=== PATIENT | female | born 1970 | race Caucasian/White ===

== ENCOUNTER → 2016-09-05 | Outpatient (CLI) | payer BC ==
[2016-09-05 16:01] LABS: Hemoglobin A1C 8.7 % (4.2-6.1)
== END | disposition home or self-care (01) ==
LOC: LABWHC1 13:33
PROVIDERS: ATTEND Internal Medicine Endocrinology, Diabetes & Metabolism
DX: E10.65 Type 1 diabetes mellitus with hyperglycemia (principal); E03.8 Other specified hypothyroidism
CPT/HCPCS: 36415; 80061; 83036; 84439; 84443

== ENCOUNTER → 2017-02-26 | Outpatient (CLI) | payer BC ==
[2017-02-26 20:06] LABS: Hemoglobin A1C 8.5 % (4.2-6.1)
== END | disposition home or self-care (01) ==
LOC: LABWHC1 16:31
PROVIDERS: ATTEND Internal Medicine Endocrinology, Diabetes & Metabolism
DX: E03.8 Other specified hypothyroidism (principal); E10.65 Type 1 diabetes mellitus with hyperglycemia
CPT/HCPCS: 36415; 80061; 83036; 84439; 84443

== ENCOUNTER 2017-08-09 23:07 | Inpatient (IN) | payer BC ==
[2017-08-09] MEDS ORDERED: SODIUM CHLORIDE 0.9% 1,000 ML IV STA ×2 (23:12)
[2017-08-09] MEDS ORDERED: SODIUM CHLORIDE 0.9% 500 ML IV STA (23:12)
[2017-08-09 23:16] LABS: Glucose,Whole Blood 521 mg/dL (75-99)
--- NOTE | 2017-08-09 23:23 | ED ---
General Adult HPI - General Stated complaint: Altered Mental Status Time Seen by Provider: 08/09/17 23:10 Source: RN notes reviewed, old records reviewed - History of Present Illness Initial comments: This is a 47-year-old female to the ER for evaluation and altered mental status , combativeness, not taking medications, elevated blood sugar and inappropriate actions at home today. EMS was called the patient's , patient himself is unable to history at this time refuses to give history at this time. - Related Data Home Medications Medication Instructions Recorded Confirmed DULoxetine HCL [Cymbalta] 60 mg PO DAILY 06/25/14 08/09/17 ALPRAZolam [Xanax] 0.75 - 1 mg PO DAILY PRN 02/09/16 08/09/17 Atorvastatin [Lipitor] 10 mg PO DAILY 02/09/16 08/09/17 Escitalopram [Lexapro] 20 mg PO DAILY 08/09/17 08/09/17 Gabapentin [Neurontin] 1,600 mg PO DIRECTED 08/09/17 08/09/17 Naproxen Sodium [Aleve] 220 mg PO DAILY 08/09/17 08/09/17 PARoxetine HCL [Paxil] 40 mg PO DAILY 08/09/17 08/09/17 Previous Rx's Medication Instructions Recorded Insulin Aspart [NovoLOG 6 unit SQ AC-TID #1 vial 08/11/17 (formulary)] Insulin Glargine [Lantus] 20 unit SQ HS #1 vial 08/11/17 Allergies Allergy/AdvReac Type Severity Reaction Status Date / Time No Known Allergies Allergy Verified 06/21/17 16:52 Review of Systems ROS Statement: Those systems with pertinent positive or pertinent negative responses have been documented in the HPI. ROS Other: All systems not noted in ROS Statement are negative. Past Medical History Past Medical History: Diabetes Mellitus, Hyperlipidemia, Thyroid Disorder Additional Past Medical History / Comment(s): INSULIN PUMP-TYPE 1, hypothyroid, vitiligo (auto immune disease that causes loss of skin color in blotches), past fx L foot and pelvic fx with childbirth. History of Any Multi-Drug Resistant Organisms: None Reported Past Surgical History: Breast Surgery, Hysterectomy Additional Past Surgical History / Comment(s): breast reduction, TUMMY TUCK, MANIPULATION RIGHT/LEFT SHOULDERS, hysterectomy with L oophorectomy, R oophorectomy. Past Anesthesia/Blood Transfusion Reactions: Motion Sickness Past Psychological History: Anxiety, Depression Smoking Status: Current every day smoker Past Alcohol Use History: None Reported Past Drug Use History: None Reported - Past Family History Father Family Medical History: No Reported History Mother Family Medical History: No Reported History General Exam Limitations: altered mental status General appearance: alert, appears intoxicated, anxious Head exam: Present: atraumatic, normocephalic, normal inspection Eye exam: Present: normal appearance, PERRL, EOMI. Absent: scleral icterus, conjunctival injection, periorbital swelling ENT exam: Present: normal exam, mucous membranes moist Neck exam: Present: normal inspection. Absent: tenderness, meningismus, lymphadenopathy Respiratory exam: Present: normal lung sounds bilaterally. Absent: respiratory distress, wheezes, rales, rhonchi, stridor Cardiovascular Exam: Present: regular rate, normal rhythm, normal heart sounds. Absent: systolic murmur, diastolic murmur, rubs, gallop, clicks GI/Abdominal exam: Present: soft, normal bowel sounds. Absent: distended, tenderness, guarding, rebound, rigid Extremities exam: Present: normal inspection, full ROM, normal capillary refill. Absent: tenderness, pedal edema, joint swelling, calf tenderness Back exam: Present: normal inspection Neurological exam: Present: alert, oriented X3, CN II-XII intact Psychiatric exam: Present: normal affect, normal mood Skin exam: Present: warm, dry, intact, normal color. Absent: rash Course Vital Signs 08/09/17 08/10/17 08/10/17 23:44 01:30 02:30 Temperature 97 F L Pulse Rate 110 H 110 H 128 H Pulse Rate [ Pulse Oximetery ] Respiratory 20 22 20 Rate Blood Pressure 125/65 128/63 122/65 Blood Pressure [Right Arm] O2 Sat by Pulse 100 96 96 Oximetry 08/10/17 08/10/17 02:55 03:20 Temperature 98.4 F Pulse Rate 109 H Pulse Rate [ 126 H Pulse Oximetery ] Respiratory 22 16 Rate Blood Pressure 113/67 Blood Pressure 113/66 [Right Arm] O2 Sat by Pulse 96 96 Oximetry - Reevaluation(s) Reevaluation #1: 08/09/17 23:22 Patient is very combative, given chemical sedation EKG Findings - EKG Comments: EKG Findings:: EKG shows sinus tachycardia rate 106, CO 132, QRS 72, QTc 480 Medical Decision Making - Medical Decision Making 47 female the ER with combativeness, decreased level of responsiveness, positive DKA. No other issues noted. Patient did take out her insulin pump earlier today for unknown reason. Patient will be admitted for correction of electrolytes IV hydration - Lab Data Result diagrams: 08/11/17 11:24 08/10/17 15:35 Lab Results 08/09/17 08/09/17 08/09/17 Range/Units 23:14 23:20 23:20 WBC (3.8-10.6) k/uL RBC (3.80-5.40) m/uL Hgb (11.4-16.0) gm/dL Hct (34.0-46.0) % MCV (80.0-100.0) fL MCH (25.0-35.0) pg MCHC (31.0-37.0) g/dL RDW (11.5-15.5) % Plt Count (150-450) k/uL Neutrophils % % Lymphocytes % % Monocytes % % Eosinophils % % Basophils % % Neutrophils # (1.3-7.7) k/uL Lymphocytes # (1.0-4.8) k/uL Monocytes # (0-1.0) k/uL Eosinophils # (0-0.7) k/uL Basophils # (0-0.2) k/uL PT (9.0-12.0) sec INR (<1.2) APTT (22.0-30.0) sec Sodium 138 (137-145) mmol/L Potassium 4.9 (3.5-5.1) mmol/L Chloride 101 (98-107) mmol/L Carbon Dioxide 16 L (22-30) mmol/L Anion Gap 21 mmol/L BUN 24 H (7-17) mg/dL Creatinine 0.60 (0.52-1.04) mg/dL Est GFR (CKD-EPI)AfAm >90 (>60 ml/min/1.73 sqM) Est GFR (CKD-EPI)NonAf >90 (>60 ml/min/1.73 sqM) Glucose 578 H* (74-99) mg/dL POC Glucose (mg/dL) 521 H (75-99) mg/dL POC Glu Visitor Services Information Assistant ID Cecilia Soto Calcium 10.0 (8.4-10.2) mg/dL Phosphorus 4.9 H (2.5-4.5) mg/dL Magnesium 1.8 (1.6-2.3) mg/dL Total Bilirubin 0.7 (0.2-1.3) mg/dL AST 26 (14-36) U/L ALT 22 (9-52) U/L Alkaline Phosphatase 115 (38-126) U/L Total Creatine Kinase 86 (30-135) U/L CK-MB (CK-2) 2.2 (0.0-2.4) ng/mL CK-MB (CK-2) Rel Index 2.6 Troponin I <0.012 (0.000-0.034) ng/mL Total Protein 6.7 (6.3-8.2) g/dL Albumin 4.1 (3.5-5.0) g/dL Urine Color Urine Appearance (Clear) Urine pH (5.0-8.0) Ur Specific Eastman (1.001-1.035) Urine Protein (Negative) Urine Glucose (UA) (Negative) Urine Ketones (Negative) Urine Blood (Negative) Urine Nitrite (Negative) Urine Bilirubin (Negative) Urine Urobilinogen (<2.0) mg/dL Ur Leukocyte Esterase (Negative) Salicylates <1.0 mg/dL Urine Opiates Screen (NotDetected) Ur Oxycodone Screen (NotDetected) Urine Methadone Screen (NotDetected) Ur Propoxyphene Screen (NotDetected) Acetaminophen <10.0 ug/mL Ur Barbiturates Screen (NotDetected) U Tricyclic Antidepress (NotDetected) Ur Phencyclidine Scrn (NotDetected) Ur Amphetamines Screen (NotDetected) U Methamphetamines Scrn (NotDetected) U Benzodiazepines Scrn (NotDetected) Urine Cocaine Screen (NotDetected) U Marijuana (THC) Screen (NotDetected) Serum Alcohol <10 mg/dL Acetone, Qual Positive (Negative) 08/09/17 08/09/17 08/09/17 Range/Units 23:20 23:20 23:20 WBC 24.6 H (3.8-10.6) k/uL RBC 4.67 (3.80-5.40) m/uL Hgb 13.6 (11.4-16.0) gm/dL Hct 43.2 (34.0-46.0) % MCV 92.5 (80.0-100.0) fL MCH 29.2 (25.0-35.0) pg MCHC 31.6 (31.0-37.0) g/dL RDW 14.2 (11.5-15.5) % Plt Count 253 (150-450) k/uL Neutrophils % 88 % Lymphocytes % 7 % Monocytes % 5 % Eosinophils % 0 % Basophils % 0 % Neutrophils # 21.6 H (1.3-7.7) k/uL Lymphocytes # 1.7 (1.0-4.8) k/uL Monocytes # 1.2 H (0-1.0) k/uL Eosinophils # 0.1 (0-0.7) k/uL Basophils # 0.1 (0-0.2) k/uL PT 12.1 H (9.0-12.0) sec INR 1.3 H (<1.2) APTT 20.6 L (22.0-30.0) sec Sodium (137-145) mmol/L Potassium (3.5-5.1) mmol/L Chloride (98-107) mmol/L Carbon Dioxide (22-30) mmol/L Anion Gap mmol/L BUN (7-17) mg/dL Creatinine (0.52-1.04) mg/dL Est GFR (CKD-EPI)AfAm (>60 ml/min/1.73 sqM) Est GFR (CKD-EPI)NonAf (>60 ml/min/1.73 sqM) Glucose (74-99) mg/dL POC Glucose (mg/dL) (75-99) mg/dL POC Glu Visitor Services Information Assistant ID Calcium (8.4-10.2) mg/dL Phosphorus (2.5-4.5) mg/dL Magnesium (1.6-2.3) mg/dL Total Bilirubin (0.2-1.3) mg/dL AST (14-36) U/L ALT (9-52) U/L Alkaline Phosphatase (38-126) U/L Total Creatine Kinase (30-135) U/L CK-MB (CK-2) (0.0-2.4) ng/mL CK-MB (CK-2) Rel Index Troponin I (0.000-0.034) ng/mL Total Protein (6.3-8.2) g/dL Albumin (3.5-5.0) g/dL Urine Color Light Yellow Urine Appearance Clear (Clear) Urine pH 5.0 (5.0-8.0) Ur Specific Eastman 1.022 (1.001-1.035) Urine Protein Negative (Negative) Urine Glucose (UA) 4+ H (Negative) Urine Ketones 3+ H (Negative) Urine Blood Negative (Negative) Urine Nitrite Negative (Negative) Urine Bilirubin Negative (Negative) Urine Urobilinogen <2.0 (<2.0) mg/dL Ur Leukocyte Esterase Negative (Negative) Salicylates mg/dL Urine Opiates Screen Not Detected (NotDetected) Ur Oxycodone Screen Not Detected (NotDetected) Urine Methadone Screen Detected H (NotDetected) Ur Propoxyphene Screen Not Detected (NotDetected) Acetaminophen ug/mL Ur Barbiturates Screen Not Detected (NotDetected) U Tricyclic Antidepress Not Detected (NotDetected) Ur Phencyclidine Scrn Not Detected (NotDetected) Ur Amphetamines Screen Not Detected (NotDetected) U Methamphetamines Scrn Not Detected (NotDetected) U Benzodiazepines Scrn Not Detected (NotDetected) Urine Cocaine Screen Not Detected (NotDetected) U Marijuana (THC) Screen Detected H (NotDetected) Serum Alcohol mg/dL Acetone, Qual (Negative) - Radiology Data Radiology results: report reviewed (CT brain chest x-ray are negative), image reviewed Disposition Clinical Impression: Altered mental status, Delirium due to general medical condition, DKA ( diabetic ketoacidoses) Disposition: ADMITTED IP TO THIS [facility] Condition: Fair
[2017-08-09 23:41] LABS: Basophils # (A) 0.1 k/uL (0-0.2); Basophils % (A) 0 %; Eosinophils # (A) 0.1 k/uL (0-0.7); Eosinophils % (A) 0 %; HCT 43.2 % (34.0-46.0); HGB 13.6 gm/dL (11.4-16.0); Lymphocytes # (A) 1.7 k/uL (1.0-4.8); Lymphocytes % (A) 7 %; MCH 29.2 pg (25.0-35.0); MCHC 31.6 g/dL (31.0-37.0); MCV 92.5 fL (80.0-100.0); Mean Platelet Volume 9.1; Monocytes # (A) 1.2 k/uL (0-1.0); Monocytes % (A) 5 %; Neutrophils # (A) 21.6 k/uL (1.3-7.7); Neutrophils % (A) 88 %; Platelet Count 253 k/uL (150-450); RBC 4.67 m/uL (3.80-5.40); RDW 14.2 % (11.5-15.5); WBC 24.6 k/uL (3.8-10.6)
[2017-08-09 23:44] LABS: Appearance,Urine Clear (Clear); Bilirubin,Urine Negative (Negative); Blood,Urine Negative (Negative); Color,Urine Light Yellow; Glucose,Urine (UA) 4+ (Negative); Leukocyte Esterase,Urine Negative (Negative); Nitrite,Urine Negative (Negative); Protein,Urine Negative (Negative); Specific Gravity,Urine 1.022 (1.001-1.035); Urobilinogen,Urine <2.0 mg/dL (<2.0)
[2017-08-09 23:52] LABS: ALT 22 U/L (9-52); AST 26 U/L (14-36); Acetaminophen <10.0 ug/mL; Albumin 4.1 g/dL (3.5-5.0); Alcohol <10 mg/dL; Alkaline Phosphatase 115 U/L (38-126); Amphetamine Screen,Urine Not Detected (NotDetected); Anion Gap 21 mmol/L; Barbiturate Screen,Urine Not Detected (NotDetected); Benzodiazepines Screen,Urine Not Detected (NotDetected); Blood Urea Nitrogen 24 mg/dL (7-17); Carbon Dioxide 16 mmol/L (22-30); Chloride 101 mmol/L (98-107); Cocaine Screen,Urine Not Detected (NotDetected); Magnesium 1.8 mg/dL (1.6-2.3); Methadone Screen, Urine Detected (NotDetected); Opiate Screen,Urine Not Detected (NotDetected); Oxycodone Screen, Urine Not Detected (NotDetected); Phencyclidine Screen,Urine Not Detected (NotDetected); Phosphorus 4.9 mg/dL (2.5-4.5); Potassium 4.9 mmol/L (3.5-5.1); Salicylate <1.0 mg/dL; Sodium 138 mmol/L (137-145); Total Bilirubin 0.7 mg/dL (0.2-1.3); Total Protein 6.7 g/dL (6.3-8.2); Tricyclic Antidepressant,Urine Not Detected (NotDetected); Urn Cannabinoid Scrn Detected (NotDetected)
[2017-08-09 23:53] LABS: INR 1.3 (<1.2); Prothrombin Time 12.1 sec (9.0-12.0)
[2017-08-10 00:01] LABS: Glucose 578 mg/dL (74-99)
[2017-08-10 00:04] LABS: Creatine Kinase 86 U/L (30-135)
[2017-08-10 00:13] LABS: Partial Thromboplastin Time 20.6 sec (22.0-30.0)
[2017-08-10] MEDS ORDERED: INSULIN REGULAR 100 UNIT/ML VIAL SQ ONE (00:13)
[2017-08-10] MEDS ORDERED: INSULIN REGULAR 100 UNIT/ML VIAL IV ONE (00:13)
[2017-08-10] MEDS ORDERED: SODIUM CHLORIDE 0.9% 500 ML IV STA (00:13)
[2017-08-10 00:17] LABS: Creatine Kinase MB 2.2 ng/mL (0.0-2.4); Troponin I <0.012 ng/mL (0.000-0.034)
[2017-08-10] MEDS ORDERED: LORazepam 2 MG/ML INJ IV STA ×2 (00:21→01:05)
[2017-08-10] MEDS ORDERED: SODIUM CHLORIDE 0.9% 1,000 ML IV ONE (00:29)
[2017-08-10 00:32] LABS: Ketones,Urine 3+ (Negative)
[2017-08-10] MEDS ORDERED: MORPHINE SULFATE 4 MG/ML SYRINGE IV STA (01:05)
[2017-08-10] MEDS ORDERED: MORPHINE SULFATE/PF 10MG/10ML VL IV STA (01:08)
[2017-08-10] MEDS: INSULIN REGULAR 100 UNIT in SODIUM CHLORIDE 0.9% 100 ML IV SCH ×2 (01:50→16:33)
--- NOTE | 2017-08-10 02:38 | XR ---
EXAMINATION TYPE: XR chest 1V portable DATE OF EXAM: 08/10/2017 COMPARISON: 02/10/2016 HISTORY: Altered mental status TECHNIQUE: Single frontal view of the chest is obtained. FINDINGS: Heart and mediastinum are normal. Lungs are clear. Costophrenic angles are clear. There is no heart failure. There is no evidence of pleural effusion. Bony thorax is intact. There are chest l abdiaziz. IMPRESSION: Normal chest. No change.
--- NOTE | 2017-08-10 03:01 | CT ---
EXAMINATION TYPE: CT brain wo con DATE OF EXAM: 08/10/2017 COMPARISON: NONE HISTORY: AMS CT DLP: 1199.40 mGycm. Automated Exposure Control for Dose Reduction was Utilized. TECHNIQUE: CT scan of the head is performed without contrast. FINDINGS: Ventricles and sulci appear normal. There is no mass effect nor midline shift. There is n o sign of intracranial hemorrhage. The calvarium is intact. CONCLUSION: Normal head CT scan.
[2017-08-10 03:04] LABS: Glucose,Whole Blood 442 mg/dL (75-99)
[2017-08-10 03:51] VITALS: BMI 18.8
[2017-08-10 04:05] LABS: Glucose,Whole Blood 382 mg/dL (75-99)
[2017-08-10 04:19] LABS: Carbon Dioxide 13 mmol/L (22-30); Glucose 396 mg/dL (74-99); Phosphorus 2.4 mg/dL (2.5-4.5); Potassium 3.6 mmol/L (3.5-5.1)
[2017-08-10 04:20] LABS: Anion Gap 22 mmol/L; Blood Urea Nitrogen 29 mg/dL (7-17); Chloride 106 mmol/L (98-107); Sodium 141 mmol/L (137-145)
[2017-08-10 04:40] LABS: Glucose,Whole Blood 336 mg/dL (75-99)
[2017-08-10] MEDS: SODIUM CHLORIDE 0.9% 1,000 ML IV SCH ×3 (05:40→17:49)
[2017-08-10 05:46] LABS: Glucose,Whole Blood 265 mg/dL (75-99)
[2017-08-10] MEDS: D5-0.45% NACL WITH KCL 20MEQ/L 1,000 ML IV SCH ×2 (06:35→15:59)
[2017-08-10 07:04] LABS: Glucose,Whole Blood 218 mg/dL (75-99)
[2017-08-10 07:39] LABS: Glucose,Whole Blood 225 mg/dL (75-99)
[2017-08-10 08:22] LABS: Anion Gap 14 mmol/L; Blood Urea Nitrogen 34 mg/dL (7-17); Carbon Dioxide 20 mmol/L (22-30); Chloride 108 mmol/L (98-107); Glucose 234 mg/dL (74-99); Phosphorus 1.3 mg/dL (2.5-4.5); Potassium 3.9 mmol/L (3.5-5.1); Sodium 142 mmol/L (137-145)
[2017-08-10 08:37] LABS: Glucose,Whole Blood 237 mg/dL (75-99)
[2017-08-10 09:40] LABS: Glucose,Whole Blood 224 mg/dL (75-99)
[2017-08-10 10:50] LABS: Glucose,Whole Blood 210 mg/dL (75-99)
[2017-08-10 11:57] LABS: Glucose,Whole Blood 170 mg/dL (75-99)
[2017-08-10 12:37] LABS: Glucose,Whole Blood 154 mg/dL (75-99)
[2017-08-10 13:32] VITALS: RESP 18
[2017-08-10 13:38] LABS: Glucose,Whole Blood 139 mg/dL (75-99)
[2017-08-10 14:38] LABS: Glucose,Whole Blood 160 mg/dL (75-99)
[2017-08-10 15:42] LABS: Glucose,Whole Blood 137 mg/dL (75-99)
[2017-08-10 16:04] LABS: Anion Gap 11 mmol/L; Blood Urea Nitrogen 36 mg/dL (7-17); Calcium 10.5 mg/dL (8.4-10.2); Carbon Dioxide 22 mmol/L (22-30); Chloride 109 mmol/L (98-107); Glucose 129 mg/dL (74-99); Potassium 4.7 mmol/L (3.5-5.1); Sodium 142 mmol/L (137-145)
[2017-08-10 16:33] LABS: Glucose,Whole Blood 105 mg/dL (75-99)
[2017-08-10] MEDS ORDERED: INSULIN DETEMIR 100 UNIT/ML 10 ML VIAL SQ STA (17:29)
--- NOTE | 2017-08-10 17:29 | P.HPIM ---
History of Present Illness 47-year-old present female admitted with altered mental status found to be in DKA patient the urine is positive for methadone and marijuana which were believed to be contributory to her altered mental status CT of the head is negative patient doesn't have any fever localized rigidity or neck rigidity no signs or symptoms of sepsis at this time. Patient was given few milligrams of Ativan because of her agitation because of which is she is completely confused unable to provide any history to me. Patient is definitely in diverticular acidosis unsure whether patient is taking his medications are not unable to get the appropriate history from her either patient is being treated for DKA on DKA protocol with every hourly basic metabolic profile testing once the anion gap resolves patient will be switched to Lantus and pre-meal insulin patient normally uses insulin pump at home. If her altered mental status doesn' t improve patient may think for encephalitis the chance of which are low considering that the patient doesn't have any signs or symptoms of sepsis are physical exam findings consistent with meningitis or encephalitis. Review of Systems Unable to obtain patient says she is okay this only as I can get from the patient Past Medical History Past Medical History: Diabetes Mellitus, Hyperlipidemia, Thyroid Disorder Additional Past Medical History / Comment(s): INSULIN PUMP-TYPE 1, hypothyroid, vitiligo (auto immune disease that causes loss of skin color in blotches), past fx L foot and pelvic fx with childbirth. History of Any Multi-Drug Resistant Organisms: None Reported Past Surgical History: Breast Surgery, Hysterectomy Additional Past Surgical History / Comment(s): breast reduction, TUMMY TUCK, MANIPULATION RIGHT/LEFT SHOULDERS, hysterectomy with L oophorectomy, R oophorectomy. Past Anesthesia/Blood Transfusion Reactions: Motion Sickness Past Psychological History: Anxiety, Depression Additional Psychological History / Comment(s): Pt resides with her spouse Smoking Status: Current every day smoker Past Alcohol Use History: None Reported Additional Past Alcohol Use History / Comment(s): Pt started smoking in 1985. She is a 1ppd smoker. Past Drug Use History: None Reported - Past Family History Father Family Medical History: No Reported History Mother Family Medical History: No Reported History Medications and Allergies Home Medications Medication Instructions Recorded Confirmed Type DULoxetine HCL [Cymbalta] 60 mg PO DAILY 06/25/14 08/09/17 History Insulin Aspart [NovoLOG] See Protocol SQ-PUMP CONTINUOUS 06/25/14 08/09/17 History ALPRAZolam [Xanax] 0.75 - 1 mg PO DAILY PRN 02/09/16 08/09/17 History Atorvastatin [Lipitor] 10 mg PO DAILY 02/09/16 08/09/17 History Escitalopram [Lexapro] 20 mg PO DAILY 08/09/17 08/09/17 History Gabapentin [Neurontin] 1,600 mg PO DIRECTED 08/09/17 08/09/17 History Naproxen Sodium [Aleve] 220 mg PO DAILY 08/09/17 08/09/17 History PARoxetine HCL [Paxil] 40 mg PO DAILY 08/09/17 08/09/17 History Allergies Allergy/AdvReac Type Severity Reaction Status Date / Time No Known Allergies Allergy Verified 06/21/17 16:52 Physical Exam Vitals: Vital Signs Temp Pulse Pulse Resp BP BP Pulse Ox 08/10/17 16:00 98.6 F 108 H 18 83/54 99 08/10/17 12:00 98.4 F 112 H 18 92/65 98 08/10/17 08:00 99.4 F 112 H 16 89/60 99 08/10/17 03:44 98.4 F 126 H 18 113/66 96 08/10/17 03:20 98.4 F 126 H 16 113/66 96 08/10/17 02:55 109 H 22 113/67 96 08/10/17 02:30 128 H 20 122/65 96 08/10/17 01:30 110 H 22 128/63 96 08/09/17 23:44 97 F L 110 H 20 125/65 100 Intake and Output 08/10/17 08/10/17 08/10/17 06:59 14:59 22:59 Intake Total 1837.304 62.003 1.693 Balance 1837.304 62.003 1.693 Intake: Amount of Fluid Infused ( 1800 ml) Intake, IV Titration 37.304 62.003 1.693 Amount Insulin Regular 100 unit 37.304 62.003 1.693 In Sodium Chloride 0.9% 100 ml @ 0.1 UNITS/KG/HR 5.95 mls/hr IV .[id number] [facility] Rx#:[id number] Oral 0 Other: Voiding Method Incontinent # Voids 1 Weight 54.5 kg 54.5 kg PHYSICAL EXAMINATION: GENERAL: The patient is alert and able does his orientation probably oriented 0 -1 unable to provide me any history lying to the side on the bed comfortable without any respiratory distress HEENT: Pupils are round and equally reacting to light. EOMI. No scleral icterus. No conjunctival pallor. Normocephalic, atraumatic. No pharyngeal erythema. No thyromegaly. CARDIOVASCULAR: S1 and S2 present. No murmurs, rubs, or gallops. PULMONARY: Chest is clear to auscultation, no wheezing or crackles. ABDOMEN: Soft, nontender, nondistended, normoactive bowel sounds. No palpable organomegaly. MUSCULOSKELETAL: No joint swelling or deformity. EXTREMITIES: No cyanosis, clubbing, or pedal edema. NEUROLOGICAL: Unable to assess patient doesn't have any nuchal rigidity neck rigidity SKIN: No rashes. Results CBC & Chem 7: 08/09/17 23:20 08/10/17 15:35 Labs: Abnormal Lab Results - Last 24 Hours (Table) 08/09/17 08/09/17 08/09/17 Range/Units 23:14 23:20 23:20 WBC 24.6 H (3.8-10.6) k/uL Neutrophils # 21.6 H (1.3-7.7) k/uL Monocytes # 1.2 H (0-1.0) k/uL PT (9.0-12.0) sec INR (<1.2) APTT (22.0-30.0) sec Chloride (98-107) mmol/L Carbon Dioxide 16 L (22-30) mmol/L BUN 24 H (7-17) mg/dL Glucose 578 H* (74-99) mg/dL POC Glucose (mg/dL) 521 H (75-99) mg/dL Calcium (8.4-10.2) mg/dL Phosphorus 4.9 H (2.5-4.5) mg/dL Urine Glucose (UA) (Negative) Urine Ketones (Negative) Urine Methadone Screen (NotDetected) U Marijuana (THC) Screen (NotDetected) 08/09/17 08/09/17 08/10/17 Range/Units 23:20 23:20 02:51 WBC (3.8-10.6) k/uL Neutrophils # (1.3-7.7) k/uL Monocytes # (0-1.0) k/uL PT 12.1 H (9.0-12.0) sec INR 1.3 H (<1.2) APTT 20.6 L (22.0-30.0) sec Chloride (98-107) mmol/L Carbon Dioxide (22-30) mmol/L BUN (7-17) mg/dL Glucose (74-99) mg/dL POC Glucose (mg/dL) 442 H (75-99) mg/dL Calcium (8.4-10.2) mg/dL Phosphorus (2.5-4.5) mg/dL Urine Glucose (UA) 4+ H (Negative) Urine Ketones 3+ H (Negative) Urine Methadone Screen Detected H (NotDetected) U Marijuana (THC) Screen Detected H (NotDetected) 08/10/17 08/10/17 08/10/17 Range/Units 03:39 03:48 04:28 WBC (3.8-10.6) k/uL Neutrophils # (1.3-7.7) k/uL Monocytes # (0-1.0) k/uL PT (9.0-12.0) sec INR (<1.2) APTT (22.0-30.0) sec Chloride (98-107) mmol/L Carbon Dioxide 13 L (22-30) mmol/L BUN 29 H (7-17) mg/dL Glucose 396 H (74-99) mg/dL POC Glucose (mg/dL) 382 H 336 H (75-99) mg/dL Calcium (8.4-10.2) mg/dL Phosphorus 2.4 L (2.5-4.5) mg/dL Urine Glucose (UA) (Negative) Urine Ketones (Negative) Urine Methadone Screen (NotDetected) U Marijuana (THC) Screen (NotDetected) 08/10/17 08/10/17 08/10/17 Range/Units 05:34 06:38 07:35 WBC (3.8-10.6) k/uL Neutrophils # (1.3-7.7) k/uL Monocytes # (0-1.0) k/uL PT (9.0-12.0) sec INR (<1.2) APTT (22.0-30.0) sec Chloride (98-107) mmol/L Carbon Dioxide (22-30) mmol/L BUN (7-17) mg/dL Glucose (74-99) mg/dL POC Glucose (mg/dL) 265 H 218 H 225 H (75-99) mg/dL Calcium (8.4-10.2) mg/dL Phosphorus (2.5-4.5) mg/dL Urine Glucose (UA) (Negative) Urine Ketones (Negative) Urine Methadone Screen (NotDetected) U Marijuana (THC) Screen (NotDetected) 08/10/17 08/10/17 08/10/17 Range/Units 07:53 08:31 09:38 WBC (3.8-10.6) k/uL Neutrophils # (1.3-7.7) k/uL Monocytes # (0-1.0) k/uL PT (9.0-12.0) sec INR (<1.2) APTT (22.0-30.0) sec Chloride 108 H (98-107) mmol/L Carbon Dioxide 20 L (22-30) mmol/L BUN 34 H (7-17) mg/dL Glucose 234 H (74-99) mg/dL POC Glucose (mg/dL) 237 H 224 H (75-99) mg/dL Calcium (8.4-10.2) mg/dL Phosphorus 1.3 L (2.5-4.5) mg/dL Urine Glucose (UA) (Negative) Urine Ketones (Negative) Urine Methadone Screen (NotDetected) U Marijuana (THC) Screen (NotDetected) 08/10/17 08/10/17 08/10/17 Range/Units 10:30 11:41 12:35 WBC (3.8-10.6) k/uL Neutrophils # (1.3-7.7) k/uL Monocytes # (0-1.0) k/uL PT (9.0-12.0) sec INR (<1.2) APTT (22.0-30.0) sec Chloride (98-107) mmol/L Carbon Dioxide (22-30) mmol/L BUN (7-17) mg/dL Glucose (74-99) mg/dL POC Glucose (mg/dL) 210 H 170 H 154 H (75-99) mg/dL Calcium (8.4-10.2) mg/dL Phosphorus (2.5-4.5) mg/dL Urine Glucose (UA) (Negative) Urine Ketones (Negative) Urine Methadone Screen (NotDetected) U Marijuana (THC) Screen (NotDetected) 08/10/17 08/10/17 08/10/17 Range/Units 13:35 14:34 15:35 WBC (3.8-10.6) k/uL Neutrophils # (1.3-7.7) k/uL Monocytes # (0-1.0) k/uL PT (9.0-12.0) sec INR (<1.2) APTT (22.0-30.0) sec Chloride 109 H (98-107) mmol/L Carbon Dioxide (22-30) mmol/L BUN 36 H (7-17) mg/dL Glucose 129 H (74-99) mg/dL POC Glucose (mg/dL) 139 H 160 H (75-99) mg/dL Calcium 10.5 H (8.4-10.2) mg/dL Phosphorus (2.5-4.5) mg/dL Urine Glucose (UA) (Negative) Urine Ketones (Negative) Urine Methadone Screen (NotDetected) U Marijuana (THC) Screen (NotDetected) 08/10/17 08/10/17 Range/Units 15:39 16:30 WBC (3.8-10.6) k/uL Neutrophils # (1.3-7.7) k/uL Monocytes # (0-1.0) k/uL PT (9.0-12.0) sec INR (<1.2) APTT (22.0-30.0) sec Chloride (98-107) mmol/L Carbon Dioxide (22-30) mmol/L BUN (7-17) mg/dL Glucose (74-99) mg/dL POC Glucose (mg/dL) 137 H 105 H (75-99) mg/dL Calcium (8.4-10.2) mg/dL Phosphorus (2.5-4.5) mg/dL Urine Glucose (UA) (Negative) Urine Ketones (Negative) Urine Methadone Screen (NotDetected) U Marijuana (THC) Screen (NotDetected) Microbiology - Last 24 Hours (Table) 08/09/17 23:20 Urine Culture - Preliminary Urine,Catheterized Thrombosis Risk Factor Assmnt - Choose All That Apply Any of the Below Risk Factors Present?: Yes Each Factor Represents 1 point: Age 41-60 years Thrombosis Risk Factor Assessment Total Risk Factor Score: 1 Thrombosis Risk Factor Assessment Level: Low Risk Assessment and Plan Plan: -Altered mental status: Probably secondary to toxic encephalopathy from opiate overuse or marijuana use. Monitor IV fluids. -Diabetic ketoacidosis probably due to noncompliance. Patient is on DKA protocol as mentioned above -Leukocytosis reactive in nature secondary to diabetic ketoacidosis -Hyperlipidemia -Hypothyroidism For above-mentioned chronic medical problems patient will be resumed and continued on appropriate home medications
[2017-08-10 17:43] LABS: Glucose,Whole Blood 117 mg/dL (75-99)
[2017-08-10] MEDS: INSULIN ASPART 100 UNIT/ML 1 ML 10 ML VIAL SQ SCH (17:49)
[2017-08-10 21:16] LABS: Glucose,Whole Blood 154 mg/dL (75-99)
[2017-08-11 01:59] LABS: Glucose,Whole Blood 114 mg/dL (75-99)
[2017-08-11] MEDS: SODIUM CHLORIDE 0.9% 1,000 ML IV SCH ×2 (02:40→08:58)
[2017-08-11 06:04] LABS: Glucose,Whole Blood 79 mg/dL (75-99)
[2017-08-11] MEDS: INSULIN ASPART 100 UNIT/ML 1 ML 10 ML VIAL SQ SCH ×2 (08:58→13:54)
[2017-08-11 09:57] LABS: Glucose,Whole Blood 115 mg/dL (75-99)
[2017-08-11 11:36] LABS: Glucose,Whole Blood 104 mg/dL (75-99)
[2017-08-11 11:38] LABS: Basophils % (A) 0 %; Eosinophils # (A) 0.1 k/uL (0-0.7); Eosinophils % (A) 0 %; HGB 12.6 gm/dL (11.4-16.0); Lymphocytes # (A) 1.3 k/uL (1.0-4.8); Lymphocytes % (A) 6 %; MCH 29.9 pg (25.0-35.0); MCHC 34.1 g/dL (31.0-37.0); MCV 87.6 fL (80.0-100.0); Mean Platelet Volume 8.2; Monocytes # (A) 0.7 k/uL (0-1.0); Monocytes % (A) 3 %; Neutrophils # (A) 18.9 k/uL (1.3-7.7); Neutrophils % (A) 90 %; Platelet Count 198 k/uL (150-450); RBC 4.22 m/uL (3.80-5.40); RDW 14.7 % (11.5-15.5); WBC 21.1 k/uL (3.8-10.6)
[2017-08-11 12:21] VITALS: BP 109/64; PULSE 81; TEMP 97.8
--- NOTE | 2017-08-11 12:47 | P.DS ---
Providers Date of admission: 08/10/17 00:30 Attending physician: Jackie Ivey Primary care physician: Stated None Hospital Course: 47-year-old female admitted for DKA patient overdosed most probably and methadone and marijuana. Patient is not having any withdrawals from opiates. Patient DKA resolved patient uses insulin pump patient evidently was having nausea vomiting probably related to drug overdose. I'm unsure patient can use insulin pump had extensive discussion with the patient and her . Patient denied any suicidal ideations patient denied any severe depression patient is much more awake much more alert and is coming out of from overdose patient is okay to be discharged from medical perspective but I do have concerns about her been using insulin pump because of that reason I'll switch her to long-acting insulin and pre-meal insulin regimen along with sliding scale and patient will follow with the her float operator early next week where the depression regarding re-any sedation of a insulin pump can be made. Extensive counseling regarding drug overdose and drug usage was provided. PHYSICAL EXAMINATION: GENERAL: The patient is alert and oriented x3, not in any acute distress. Well developed, well nourished. HEENT: Pupils are round and equally reacting to light. EOMI. No scleral icterus. No conjunctival pallor. Normocephalic, atraumatic. No pharyngeal erythema. No thyromegaly. CARDIOVASCULAR: S1 and S2 present. No murmurs, rubs, or gallops. PULMONARY: Chest is clear to auscultation, no wheezing or crackles. ABDOMEN: Soft, nontender, nondistended, normoactive bowel sounds. No palpable organomegaly. MUSCULOSKELETAL: No joint swelling or deformity. EXTREMITIES: No cyanosis, clubbing, or pedal edema. NEUROLOGICAL: Gross neurological examination did not reveal any focal deficits. SKIN: No rashes. Assessment and Plan Plan: -Altered mental status: Probably secondary to toxic encephalopathy from opiate overuse or marijuana use. -Diabetic ketoacidosis probably due to noncompliance. -Leukocytosis reactive in nature secondary to diabetic ketoacidosis, improving now, there is no evidence of sepsis at this time -Hyperlipidemia -Hypothyroidism For above-mentioned chronic medical problems patient will be resumed and continued on appropriate home medications Patient Condition at Discharge: Fair Plan - Discharge Summary New Discharge Prescriptions: New Insulin Aspart [NovoLOG (formulary)] 6 unit SQ AC-TID #1 vial Insulin Glargine [Lantus] 20 unit SQ HS #1 vial Continue DULoxetine HCL [Cymbalta] 60 mg PO DAILY ALPRAZolam [Xanax] 0.75 - 1 mg PO DAILY PRN PRN Reason: Anxiety Atorvastatin [Lipitor] 10 mg PO DAILY Escitalopram [Lexapro] 20 mg PO DAILY Gabapentin [Neurontin] 1,600 mg PO DIRECTED Naproxen Sodium [Aleve] 220 mg PO DAILY PARoxetine HCL [Paxil] 40 mg PO DAILY Discontinued Insulin Aspart [NovoLOG] See Protocol SQ-PUMP CONTINUOUS Discharge Medication List DULoxetine HCL [Cymbalta] 60 mg PO DAILY 06/25/14 [History] ALPRAZolam [Xanax] 0.75 - 1 mg PO DAILY PRN 02/09/16 [History] Atorvastatin [Lipitor] 10 mg PO DAILY 02/09/16 [History] Escitalopram [Lexapro] 20 mg PO DAILY 08/09/17 [History] Gabapentin [Neurontin] 1,600 mg PO DIRECTED 08/09/17 [History] Naproxen Sodium [Aleve] 220 mg PO DAILY 08/09/17 [History] PARoxetine HCL [Paxil] 40 mg PO DAILY 08/09/17 [History] Insulin Aspart [NovoLOG (formulary)] 6 unit SQ AC-TID #1 vial 08/11/17 [Rx] Insulin Glargine [Lantus] 20 unit SQ HS #1 vial 08/11/17 [Rx] Follow up Appointment(s)/Referral(s): Felicita Freire MD [REFERRING] - 3 Days (Pt to make appointment as the office is closed.) Patient Instructions/Handouts: Diabetic Ketoacidosis (DC) Discharge Disposition: HOME SELF-CARE
[2017-08-11 18:32] LABS: Hemoglobin A1C 8.1 % (4.0-6.0)
== END 2017-08-11 15:46 | disposition home or self-care (01) | DRG 917 ==
LOC: EC 23:07 → 6SEL 08-10 00:30
PROVIDERS: ADMIT Hospitalist; ATTEND Hospitalist
DX: T40.2X1A Poisoning by other opioids, accidental (unintentional), initial encounter (principal); G92 Toxic encephalopathy; E11.10 Type 2 diabetes mellitus with ketoacidosis without coma; F05 Delirium due to known physiological condition; D72.829 Elevated white blood cell count, unspecified; E78.5 Hyperlipidemia, unspecified; F12.90 Cannabis use, unspecified, uncomplicated; F17.210 Nicotine dependence, cigarettes, uncomplicated; F32.9 Major depressive disorder, single episode, unspecified; F41.9 Anxiety disorder, unspecified; Z79.4 Long term (current) use of insulin; Z90.710 Acquired absence of both cervix and uterus; Z90.721 Acquired absence of ovaries, unilateral; Z91.19 Patient's noncompliance with other medical treatment and regimen; Z96.41 Presence of insulin pump (external) (internal); Z79.899 Other long term (current) drug therapy; Z79.1 Long term (current) use of non-steroidal anti-inflammatories (NSAID)
CPT/HCPCS: 36415; 70450; 71045; 80048; 80051; 80053; 80306; 80320; 81003; 82009; 82550; 82553; 82565; 82947; 83036; 83520; 83735; 84100; 84484; 84520; 85025; 85610; 85730; 87086; 93005; 96361; 96374; 96375; 96376; 99285

== ENCOUNTER → 2017-11-11 | Outpatient (CLI) | payer BC ==
[2017-11-11 12:55] LABS: ALT 30 U/L (9-52); AST 21 U/L (14-36); Albumin 4.1 g/dL (3.5-5.0); Alkaline Phosphatase 107 U/L (38-126); Anion Gap 10 mmol/L; Blood Urea Nitrogen 17 mg/dL (7-17); Calcium 9.4 mg/dL (8.4-10.2); Carbon Dioxide 29 mmol/L (22-30); Chloride 103 mmol/L (98-107); Glucose 89 mg/dL (74-99); Potassium 4.1 mmol/L (3.5-5.1); Sodium 142 mmol/L (137-145); Total Bilirubin 0.2 mg/dL (0.2-1.3); Total Protein 6.6 g/dL (6.3-8.2)
== END | disposition home or self-care (01) ==
LOC: LABWHC1 12:00
PROVIDERS: ATTEND Internal Medicine Endocrinology, Diabetes & Metabolism
DX: E03.8 Other specified hypothyroidism (principal); E10.65 Type 1 diabetes mellitus with hyperglycemia
CPT/HCPCS: 36415; 80053; 82043; 82570; 84443

== ENCOUNTER → 2018-01-06 | Outpatient (CLI) | payer BC ==
--- NOTE | 2018-01-07 13:48 | MM ---
Reason for exam: screening (asymptomatic). Last mammogram was performed 3 years and 7 months ago. History: Patient is postmenopausal. Reductions of both breasts, October 2004. Took hormonal contraceptives for 2 years. Physical Findings: A clinical breast exam by your physician is recommended on an annual basis and results should be correlated with mammographic findings. MG 3D Screening Mammo W/Cad Bilateral CC and MLO view(s) were taken. Prior study comparison: May 31, 2014, bilateral MG screening mammo w CAD. There are scattered fibroglandular densities. No significant changes when compared with prior studies. ASSESSMENT: Benign, BI-RAD 2 RECOMMENDATION: Routine screening mammogram of both breasts in 1 year.
== END | disposition home or self-care (01) ==
LOC: RADMAMWWP 16:43
PROVIDERS: ATTEND Family Medicine
DX: Z12.31 Encounter for screening mammogram for malignant neoplasm of breast (principal)
CPT/HCPCS: 77063; 77067

== ENCOUNTER → 2018-04-15 | Outpatient (CLI) | payer BC ==
[2018-04-15 09:24] LABS: Basophils % (A) 1 %; Eosinophils # (A) 0.3 k/uL (0-0.7); Eosinophils % (A) 5 %; HCT 44.8 % (34.0-46.0); HGB 14.7 gm/dL (11.4-16.0); Lymphocytes # (A) 2.3 k/uL (1.0-4.8); Lymphocytes % (A) 39 %; MCH 29.6 pg (25.0-35.0); MCHC 32.9 g/dL (31.0-37.0); Monocytes # (A) 0.4 k/uL (0-1.0); Monocytes % (A) 6 %; Neutrophils # (A) 2.8 k/uL (1.3-7.7); Neutrophils % (A) 47 %; Platelet Count 295 k/uL (150-450); RBC 4.98 m/uL (3.80-5.40); RDW 13.2 % (11.5-15.5); WBC 5.9 k/uL (3.8-10.6)
[2018-04-15 17:23] LABS: Albumin 4.3 g/dL (3.80-4.90); Albumin/Globulin Ratio 1.95 (1.20-2.10); Anion Gap 6.4 mmol/L (4.00-12.00); Calcium 9.4 mg/dL (8.7-10.3); Carbon Dioxide 30.6 mmol/L (21.6-31.8); Globulin 2.2 g/dL (2.1-3.7); Potassium 4.1 mmol/L (3.5-5.5); Total Bilirubin 0.6 mg/dL (0.2-1.2); Total Protein 6.5 g/dL (6.2-8.2)
[2018-04-15 17:31] LABS: T4, Free (Free Thyroxine) 1.2 ng/dL (0.80-1.80)
== END | disposition home or self-care (01) ==
LOC: LABWHC1 08:19
PROVIDERS: ATTEND Internal Medicine Endocrinology, Diabetes & Metabolism
DX: E03.8 Other specified hypothyroidism (principal); E10.65 Type 1 diabetes mellitus with hyperglycemia
CPT/HCPCS: 36415; 80053; 84439; 84443; 85025

== ENCOUNTER → 2018-10-06 | Outpatient (CLI) | payer BC | END | disposition home or self-care (01) | LOC: LABWHC1 08:31 | PROVIDERS: ATTEND Internal Medicine Endocrinology, Diabetes & Metabolism | DX: E10.65 Type 1 diabetes mellitus with hyperglycemia (principal); E03.8 Other specified hypothyroidism | CPT/HCPCS: 36415; 80061; 82043; 82570; 84439; 84443 ==